=== PATIENT | male | born 1980 | race Two or more races ===

== ENCOUNTER 2017-04-25 23:37 | Emergency (ER) | payer SELFPAY ==
[2017-04-26] MEDS ORDERED: Ketorolac 60 MG/2 ML SDV IM ONE (00:48)
--- NOTE | 2017-04-26 00:54 | EDM.PDOC ---
ED HPI GENERAL MEDICAL PROBLEM - General Chief Complaint: Headache Stated Complaint: HEAD/RT EAR PAIN Time Seen by Provider: 04/26/17 00:35 - History of Present Illness INITIAL COMMENTS - FREE TEXT/NARRATIVE: HISTORY AND PHYSICAL: History of present illness: The patient is a 37-year-old male who presents with complaints of episodic persistent posterior headache that started about 8 days ago after he was coughing. Patient stated he had flulike symptoms and was coughing and after he had an episode of coughing he felt the pain on the back of his head. It waxes and wanes in intensity but keeps coming back and he was concerned and seeks evaluation. The patient has been taking [id number] Cherri aspirin as well as a Samoan pain meds which is a Tylenol derivative with caffeine. He says that he takes the medication and his headache improves but it comes back. He does not have a local provider. He has not had fever chills neck pain chest pain shortness of breath nausea or vomiting and has no neurosensory changes in his extremities and no back pain. The patient says that now the pain has moved to his right ear and he is concerned about it which is why he came in this evening. He's had no drainage from the ear. 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 Review of systems: As per history of present illness and below otherwise all systems reviewed and negative. Past medical history: As per history of present illness and as reviewed below otherwise noncontributory. Surgical history: As per history of present illness and as reviewed below otherwise noncontributory. Social history: No reported history of drug or alcohol abuse. Family history: As per history of present illness and as reviewed below otherwise noncontributory. Physical exam: Gen.: Well-developed well-nourished man who is nontoxic and vital signs of been reviewed by me. HEENT: Atraumatic, normocephalic, pupils reactive, negative for conjunctival pallor or scleral icterus, mucous membranes moist, throat clear, neck supple, nontender, trachea midline. There is no scalp defects or deformities and there is some tenderness at palpation of the occipital scalp area without any soft tissue swelling. There is no nuchal rigidity or cervical adenopathy. The TM on the left is slightly dulled and there is some cerumen in the canal and there is no mastoid tenderness or erythema and on the right side there is no mastoid tenderness or erythema but the TM has changes consistent with a Cholesteatoma. There is no redness or gross drainage appreciated Lungs: Clear to auscultation, breath sounds equal bilaterally, chest nontender. Heart: S1S2, regular rate and rhythm no overt murmurs Abdomen: Soft, nondistended, nontender. NABS Pelvis: Deferred Genitourinary: Deferred. Rectal: Deferred. Extremities: Atraumatic, negative for cords or calf pain. Neurovascular unremarkable. Neuro: Awake, alert, oriented. Cranial nerves II through XII unremarkable. Cerebellum unremarkable. Motor and sensory unremarkable throughout. Exam nonfocal. Diagnostics: CT scan of the head Therapeutics: Toradol All testing results and care plan for home have been discussed with the patient through the [facility] check examiner and he states that he understands he needs follow- up in the clinic as well as ENT follow-up and that I will be giving him some tramadol and Motrin to use for pain as needed if his own pain medications are not working. Impression: Persistent episodic headaches, Cholesteatoma changes of right tympanic membrane with otalgia Definitive disposition and diagnosis as appropriate pending reevaluation and review of above. Headache Pain Score (Numeric/FACES): 10 - Related Data Allergies Allergy/AdvReac Type Severity Reaction Status Date / Time No Known Allergies Allergy Verified 04/26/17 00:12 Home Meds: Home Meds . [No Known Home Meds] 03/07/15 [History] Past Medical History - Past Health History Medical/Surgical History: Denies Medical/Surgical History Social & Family History - Family History Family Medical History: Noncontributory - Tobacco Use Smoking Status *Q: Never Smoker Second Hand Smoke Exposure: No - Caffeine Use Caffeine Use: Reports: None - Recreational Drug Use Recreational Drug Use: No ED ROS GENERAL - Review of Systems Review Of Systems: ROS reveals no pertinent complaints other than HPI. ED EXAM, GENERAL - Physical Exam Exam: See Below (See dictation) Course - Vital Signs Last Recorded V/S: Last Vital Signs Temp 37.1 C 04/26/17 00:13 Pulse 69 04/26/17 00:13 Resp 16 04/26/17 00:13 BP 120/72 04/26/17 00:13 Pulse Ox 95 04/26/17 00:13 - Orders/Labs/Meds Orders: Active Orders 24 hr Category Date Time Status Head wo Cont [CT] Stat Exams 04/26/17 00:48 Taken Meds: Medications Discontinued Medications Generic Name Dose Route Start Last Admin Trade Name Daniel PRN Reason Stop Dose Admin Ketorolac Tromethamine 60 mg 04/26/17 00:48 04/26/17 01:10 Toradol IM 04/26/17 00:49 60 mg ONETIME ONE Administration Departure - Departure Time of Disposition: 01:46 Disposition: Home, Self-Care 01 Condition: Good Clinical Impression: Persistent headaches, Otalgia of right ear, Cholesteatoma - Discharge Information Referrals: PCP,None [Primary Care Provider] - Forms: ED Department Discharge Additional Instructions: The following information is given to patients seen in the emergency department who are being discharged to home. This information is to outline your options for follow-up care. We provide all patients seen in our emergency department with a follow-up referral. The need for follow-up, as well as the timing and circumstances, are variable depending upon the specifics of your emergency department visit. If you don't have a primary care physician on staff, we will provide you with a referral. We always advise you to contact your personal physician following an emergency department visit to inform them of the circumstance of the visit and for follow-up with them and/or the need for any referrals to a consulting specialist. The emergency department will also refer you to a specialist when appropriate. This referral assures that you have the opportunity for followup care with a specialist. All of these measure are taken in an effort to provide you with optimal care, which includes your followup. Under all circumstances we always encourage you to contact your private physician who remains a resource for coordinating your care. When calling for followup care, please make the office aware that this follow-up is from your recent emergency room visit. If for any reason you are refused follow-up, please contact the [facility] emergency department at and ask to speak to the emergency department charge nurse. [facility] Primary care- Internal Medicine and Family [address] [address] [facility] - ENT [address] [place] [address] Please contact one of our providers in the clinic to further evaluate these headaches and use medications as prescribed from [facility], tramadol and Motrin , if your own pain medications are not working. Return to ER as needed and as discussed. - My Orders Last 24 Hours: My Active Orders 04/26/17 00:48 Head wo Cont [CT] Stat - Assessment/Plan Last 24 Hours: My Active Orders 04/26/17 00:48 Head wo Cont [CT] Stat
[2017-04-26 02:02] VITALS: BP 100/67
--- NOTE | 2017-04-26 13:28 | CT ---
EXAM DATE: 04/25/17 PATIENT'S AGE: 37 Patient: KASSANDRA LOVE Facility: [place], [place] Site . Site : [id number] Study: CT Head [id number] 1:13:57 AM Ordering Physician: Maribell Darby Final Report: INDICATION: Posterior headache for 8 days TECHNIQUE: CT Head without i. v. contrast. COMPARISON: None FINDINGS: CSF spaces: Within normal limits for age. Brain parenchyma: The brain parenchyma is normal in appearance with preservation of the white-white matter junction. No sign of mass, hemorrhage, or midline shift. Skull base and calvarium: The visualized paranasal sinuses are well aerated. The mastoid air cells are clear. The visualized orbits are grossly unremarkable. No skull fractures are seen. IMPRESSION: 1. No CT evidence of acute infarct, hemorrhage, or mass effect seen. Dictated by: Tyler Julian MD @ 04/26/2017 01:22:14 (Electronic Signature) Report Signed by Proxy. KAMALA
== END 2017-04-26 01:58 | disposition home or self-care (01) ==
LOC: MW.ED 23:37
DX: H71.11 Cholesteatoma of tympanum, right ear (principal); R51 Headache
CPT/HCPCS: 70450; 96372; 99284; J1885

== ENCOUNTER 2020-11-25 14:42 | Emergency (ER) | payer SELFPAY ==
[2020-11-25] MEDS ORDERED: Sodium Chloride 0.9% 2.5 ML Syringe FLUSH PRN (15:04)
[2020-11-25] MEDS ORDERED: Sodium Chloride 0.9% 10 ML Syringe FLUSH PRN (15:04)
[2020-11-25] MEDS ORDERED: Sodium Chloride 0.9% 1,000 ML IV ONE (15:28)
--- NOTE | 2020-11-25 15:46 | EDM.PDOC ---
ED HPI GENERAL MEDICAL PROBLEM - General Chief Complaint: Abdominal Pain Stated Complaint: RIGHT SIDE PAIN Time Seen by Provider: 11/25/20 15:01 Source of Information: Reports: Patient History Limitations: Reports: No Limitations - History of Present Illness INITIAL COMMENTS - FREE TEXT/NARRATIVE: HISTORY AND PHYSICAL: History of present illness: Patient is a 40-year-old male who presents to the emergency room with complaints of right sided abdominal pain x2 months. Patient points to his lateral abdomen and right upper quadrant. Patient denies any fever, chills, headache, change in vision, syncope or near syncope. Denies any chest pain, back pain, shortness of breath or cough. Denies any nausea, vomiting, diarrhea, constipation or dysuria. Has not noted any blood in urine or stool. He denies any testicular pain, redness or swelling. No concern for STIs. Patient has been eating and drinking appropriately. [employer] translation services used - [place] speaking only Review of systems: As per history of present illness and below otherwise all systems reviewed and negative. Past medical history: As per history of present illness and as reviewed below otherwise n oncontributory. Surgical history: As per history of present illness and as reviewed below otherwise noncontributory. Social history: See social history for further information Family history: As per history of present illness and as reviewed below otherwise noncontributory. Physical exam: General: Well developed and well nourished 40 year old male. Alert and orientated x 3. Nontoxic in appearance and in no acute distress. Vital signs are stable and have been reviewed by me. Nursing notes were reviewed. HEENT: Atraumatic, normocephalic, pupils equal and reactive bilaterally, ne gative for conjunctival pallor or scleral icterus, mucous membranes moist, trachea midline. No drooling or trismus noted. No meningeal signs. No hot potato voice noted. Lungs: Clear to auscultation bilaterally. No wheezes, rales, or rhonchi. Chest nontender. Normal work of breathing, no accessory muscles used. Heart: S1S2, regular rate and rhythm without overt murmur, gallops, or rubs. No JVD. No peripheral edema Abdomen: Soft, nondistended, nontender. Normoactive bowel sounds. Negative for masses or costovertebral tenderness. Skin: Intact, warm, dry. No lesions or rashes noted. Hematologic: No petechiae or purpra. Mucosa appropriate color and normal nail bed color and refill. Extremities: Atraumatic, moves all extremities per self without difficulty or deficits, negative for cords or calf pain. Neurovascular unremarkable. Neuro: Awake, alert, oriented. Cranial nerves II through XII unremarkable. Cerebellum unremarkable. Motor and sensory unremarkable throughout. Exam nonfocal. Psychiatric: Mood and affect are appropriate. Normal thought process. Answering questions appropriately. Notes: *This patient was seen and evaluated during the 2019 SARS-CoV-2 novel coronavirus pandemic period. Community viral transmission is ongoing at time of this encounter and the emergency department is operating under pandemic response procedures. Patient is a 40-year-old male who presents to the emergency room with a 2-month history of right side pain. He states that the pain is intermittent and does not associate with food. He denies any nausea, vomiting or diarrhea. No skin rashes, lesions or recent travel. My physical exam is unremarkable. No concerning findings. Vital signs are stable. 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 CT shows nothing seen to explain the patient`s right-sided pain and hematuria. Normal appearance of the right urinary system with no sign of calculus or obstruction. Normal appearance of the appendix. CT of the abdomen shows fatty infiltration of the liver. CT of the pelvis shows minimal distal sigmoid diverticulosisI have talked with the patient about today's findings, in addition to providing specific details for plan of care. Reassessment at the time of disposition demonstrates that the patient is in no acute distress. The patient is stable for discharge, counseling was provided and we discussed in great detail signs and symptoms that would prompt them to return to the Emergency Department. Medication, follow up and supportive care measures were reviewed and discussed. Voices understanding and is agreeable to plan of care. Denies any further questions or concerns at this time. Diagnostics: CBC, CMP, Lipase, UA, CT abdomen/pelvis Therapeutics: IV fluids Prescription: None Impression: Abdominal Pain Plan: 1. You were evaluated today on an emergent basis. Your lab work is within normal limits. Your CT shows no concerning findings. Continue to monitor symptoms closely. If your symptoms should worsen, new symptoms develop or any of the signs and symptoms we discussed should arise please return to the emergency room or call 911 (if needed). 2. You can alternate Tylenol and ibuprofen as needed for pain and fever management. 3. We encourage you to follow up with your primary care provider and/or rec ommended specialist in the next few days for re-evaluation and further care/management. Translated [place] to Scottish: 1. Usted fue evaluado hoy de forma emergente. Estrada trabajo de laboratorio est de ntro de los lmites normales. Estrada TC no muestra hallazgos preocupantes. Contine monitoreando los sntomas de cerca. Si sunday sntomas empeoran, aparecen nuevos sntomas o si surge alguno de los signos y sntomas que discutimos, regrese a la zuleima de emergencias o llame al 911 (si es necesario). 2. Puede alternar Tylenol e ibuprofeno segn sea necesario para controlar el dolor y la fiebre. 3. Le recomendamos que terrie un seguimiento con estrada proveedor de atencin primaria y / o especialista recomendado en los prximos blum para clovis reevaluacin y atencin / manejo adicional. Definitive disposition and diagnosis as appropriate pending reevaluation and review of above. right upper abdomen Pain Score (Numeric/FACES): 8 - Related Data Allergies Allergy/AdvReac Type Severity Reaction Status Date / Time No Known Allergies Allergy Verified 11/25/20 15:26 Home Meds: Home Meds . [No Known Home Meds] 03/07/15 [History] Past Medical History - Past Health History Medical/Surgical History: Denies Medical/Surgical History HEENT History: Reports: None Cardiovascular History: Reports: None Respiratory History: Reports: None Gastrointestinal History: Reports: None Genitourinary History: Reports: None Musculoskeletal History: Reports: None Neurological History: Reports: None Psychiatric History: Reports: None Endocrine/Metabolic History: Reports: None Hematologic History: Reports: None Immunologic History: Reports: None Oncologic (Cancer) History: Reports: None Dermatologic History: Reports: None - Infectious Disease History Infectious Disease History: Reports: None - Past Surgical History Head Surgeries/Procedures: Reports: None Social & Family History - Family History Family Medical History: No Pertinent Family History - Tobacco Use Tobacco Use Status *Q: Never Tobacco User Second Hand Smoke Exposure: No - Caffeine Use Caffeine Use: Reports: None - Recreational Drug Use Recreational Drug Use: No ED ROS GENERAL - Review of Systems Review Of Systems: Comprehensive ROS is negative, except as noted in HPI. ED EXAM, GI/ABD - Physical Exam Exam: See Below (See dictation) Course - Vital Signs Last Recorded V/S: Last Vital Signs Temp 98.2 F 11/25/20 15:18 Pulse 62 11/25/20 18:12 Resp 16 11/25/20 18:12 BP 103/58 L 11/25/20 18:12 Pulse Ox 98 11/25/20 18:12 - Orders/Labs/Meds Orders: Active Orders 24 hr Category Date Time Status CULTURE URINE [MREF] Stat Lab 11/25/20 17:42 Ordered Saline Lock Insert [OM.PC] Stat Oth 11/25/20 15:04 Ordered Labs: Laboratory Tests 11/25/20 11/25/20 11/25/20 Range/Units 15:46 15:46 15:46 WBC 7.46 (4.0-11.0) K/uL RBC 5.31 (4.50-5.90) M/uL Hgb 16.5 (13.0-17.0) g/dL Hct 46.3 (38.0-50.0) % MCV 87.2 (80.0-98.0) fL MCH 31.1 (27.0-32.0) pg MCHC 35.6 (31.0-37.0) g/dL RDW Std Deviation 39.6 (28.0-62.0) fl RDW Coeff of Senia 12 (11.0-15.0) % Plt Count 194 (150-400) K/uL MPV 11.80 (7.40-12.00) fL Neut % (Auto) 49.9 (48.0-80.0) % Lymph % (Auto) 35.4 (16.0-40.0) % [place] % (Auto) 12.7 (0.0-15.0) % Eos % (Auto) 1.7 (0.0-7.0) % Baso % (Auto) 0.3 (0.0-1.5) % Neut # (Auto) 3.7 (1.4-5.7) K/uL Lymph # (Auto) 2.6 H (0.6-2.4) K/uL [place] # (Auto) 1.0 H (0.0-0.8) K/uL Eos # (Auto) 0.1 (0.0-0.7) K/uL Baso # (Auto) 0.0 (0.0-0.1) K/uL Nucleated RBC % 0.0 /100WBC Nucleated RBCs # 0 K/uL Sodium 141 (136-148) mmol/L Potassium 3.5 (3.5-5.1) mmol/L Chloride 105 (98-107) mmol/L Carbon Dioxide 28.9 (21.0-32.0) mmol/L BUN 14 (7.0-18.0) mg/dL Creatinine 0.8 (0.8-1.3) mg/dL Est Cr Clr Drug Dosing 101.90 mL/min Estimated GFR (MDRD) > 60.0 ml/min Glucose 105 (74-106) mg/dL Calcium 9.2 (8.5-10.1) mg/dL Total Bilirubin 0.6 (0.2-1.0) mg/dL AST 40 H (15-37) IU/L ALT 112 H (14-63) IU/L Alkaline Phosphatase 113 (46-116) U/L Total Protein 7.9 (6.4-8.2) g/dL Albumin 4.4 (3.4-5.0) g/dL Globulin 3.5 (2.6-4.0) g/dL Albumin/Globulin Ratio 1.3 (0.9-1.6) Lipase (73-393) U/L Urine Color YELLOW Urine Appearance CLEAR Urine pH 5.5 (5.0-8.0) Ur Specific [place] >= 1.030 (1.001-1.035) Urine Protein NEGATIVE (NEGATIVE) mg/dL Urine Glucose (UA) NEGATIVE (NEGATIVE) mg/dL Urine Ketones NEGATIVE (NEGATIVE) mg/dL Urine Occult Blood TRACE-INTACT H (NEGATIVE) Urine Nitrite NEGATIVE (NEGATIVE) Urine Bilirubin NEGATIVE (NEGATIVE) Urine Urobilinogen 0.2 (<2.0) EU/dL Ur Leukocyte Esterase NEGATIVE (NEGATIVE) Urine RBC 0-2 (0-2/HPF) Urine WBC 2-3 (0-5/HPF) Ur Epithelial Cells NOT SEEN (NONE-FEW) Amorphous Sediment RARE (NEGATIVE) Urine Bacteria RARE (NEGATIVE) Urine Mucus FEW (NONE-MOD) 11/25/20 Range/Units 15:46 WBC (4.0-11.0) K/uL RBC (4.50-5.90) M/uL Hgb (13.0-17.0) g/dL Hct (38.0-50.0) % MCV (80.0-98.0) fL MCH (27.0-32.0) pg MCHC (31.0-37.0) g/dL RDW Std Deviation (28.0-62.0) fl RDW Coeff of Senia (11.0-15.0) % Plt Count (150-400) K/uL MPV (7.40-12.00) fL Neut % (Auto) (48.0-80.0) % Lymph % (Auto) (16.0-40.0) % [place] % (Auto) (0.0-15.0) % Eos % (Auto) (0.0-7.0) % Baso % (Auto) (0.0-1.5) % Neut # (Auto) (1.4-5.7) K/uL Lymph # (Auto) (0.6-2.4) K/uL [place] # (Auto) (0.0-0.8) K/uL Eos # (Auto) (0.0-0.7) K/uL Baso # (Auto) (0.0-0.1) K/uL Nucleated RBC % /100WBC Nucleated RBCs # K/uL Sodium (136-148) mmol/L Potassium (3.5-5.1) mmol/L Chloride (98-107) mmol/L Carbon Dioxide (21.0-32.0) mmol/L BUN (7.0-18.0) mg/dL Creatinine (0.8-1.3) mg/dL Est Cr Clr Drug Dosing mL/min Estimated GFR (MDRD) ml/min Glucose (74-106) mg/dL Calcium (8.5-10.1) mg/dL Total Bilirubin (0.2-1.0) mg/dL AST (15-37) IU/L ALT (14-63) IU/L Alkaline Phosphatase (46-116) U/L Total Protein (6.4-8.2) g/dL Albumin (3.4-5.0) g/dL Globulin (2.6-4.0) g/dL Albumin/Globulin Ratio (0.9-1.6) Lipase 93 (73-393) U/L Urine Color Urine Appearance Urine pH (5.0-8.0) Ur Specific [place] (1.001-1.035) Urine Protein (NEGATIVE) mg/dL Urine Glucose (UA) (NEGATIVE) mg/dL Urine Ketones (NEGATIVE) mg/dL Urine Occult Blood (NEGATIVE) Urine Nitrite (NEGATIVE) Urine Bilirubin (NEGATIVE) Urine Urobilinogen (<2.0) EU/dL Ur Leukocyte Esterase (NEGATIVE) Urine RBC (0-2/HPF) Urine WBC (0-5/HPF) Ur Epithelial Cells (NONE-FEW) Amorphous Sediment (NEGATIVE) Urine Bacteria (NEGATIVE) Urine Mucus (NONE-MOD) Meds: Medications Discontinued Medications Generic Name Dose Route Start Last Admin Trade Name Freq PRN Reason Stop Dose Admin Sodium Chloride 1,000 mls @ 999 mls/hr 11/25/20 15:28 11/25/20 15:45 Normal Saline IV 11/25/20 16:28 999 mls/hr STAT ONE Administration Sodium Chloride 10 ml 11/25/20 15:04 11/25/20 15:46 Sodium Chloride 0.9% 10 Ml Syringe FLUSH 10 ml ASDIRECTED PRN Administration Keep Vein Open Sodium Chloride 2.5 ml 11/25/20 15:04 11/25/20 15:46 Sodium Chloride 0.9% 2.5 Ml Syringe FLUSH 2.5 ml ASDIRECTED PRN Administration Keep Vein Open Departure - Departure Time of Disposition: 17:44 Disposition: Home, Self-Care 01 Clinical Impression: Abdominal pain Qualifiers: Abdominal location: right lower quadrant Qualified Code(s): R10.31 - Right lower quadrant pain - Discharge Information Instructions: Abdominal Pain, Adult, [id number] Referrals: PCP,None [Primary Care Provider] - Forms: ED Department Discharge Additional Instructions: La siguiente informacin se proporciona a los pacientes atendidos en el departamento de emergencias que estn siendo dados de gerardo a estrada hogar. Esta informacin es para describir sunday opciones para la atencin de seguimiento. Proporcionamos a todos los pacientes atendidos en nuestro departamento de emergencias clovis derivacin de seguimiento. La necesidad de seguimiento, as georgi el momento y las circunstancias, varan segn los detalles de estrada visita al departamento de emergencias. Si no tiene un mdico de atencin primaria en el personal, le proporcionaremos clovis referencia. Siempre le recomendamos que se ponga en contacto con estrada mdico personal despus de clovis visita al servicio de urgencias para informarle de las circunstancias de la visita y para realizar un seguimiento con l y / o la necesidad de derivaciones a un especialista consultor. El departamento de emergencias tambin lo derivar a un especialista cuando sea apropiado. Esta remisin le asegura que tiene la oportunidad de recibir atencin de seguimiento con un especialista. Todas estas medidas se mago en un esfuerzo por brindarle clovis atencin ptima, que incluye estrada seguimiento. En todas las circunstancias, siempre lo alentamos a que se comunique con estrada mdico privado, quien sigue siendo un recurso para coordinar estrada atencin. Cuando llame para recibir atencin de seguimiento, informe al consultorio que oscar seguimiento es de estrada visita reciente a la zuleima de emergencias. Si por alguna razn se le niega el seguimiento, comunquese con el Departamento de Emergencias del [facility] y solicite hablar con la enfermera a cargo del departamento de emergencias. [facility] [address] [place] [address] [facility] [address] [place] [address] [place] por elegir el departamento de emergencias de [facility] en [place] para sunday necesidades mdicas hoy. Fue un placer cuidar de ti. Thank you for choosing the [facility] emergency department in [place] for your medical needs today. It was a pleasure caring for you. Today you were seen in the emergency department for right-sided abdominal pain 1. You were evaluated today on an emergent basis. Your lab work is within n ormal limits. Your CT shows no concerning findings. Continue to monitor symptoms closely. If your symptoms should worsen, new symptoms develop or any of the signs and symptoms we discussed should arise please return to the emergency room or call 911 (if needed). 2. You can alternate Tylenol and ibuprofen as needed for pain and fever management. 3. We encourage you to follow up with your primary care provider and/or recommended specialist in the next few days for re-evaluation and further care/management. Translated [place] to Scottish: 1. Usted fue evaluado hoy de forma emergente. Estrada trabajo de laboratorio est dentro de los lmites normales. Estrada TC no muestra hallazgos preocupantes. Contine monitoreando los sntomas de cerca. Si sunday sntomas empeoran, aparecen nuevos sntomas o si surge alguno de los signos y sntomas que discutimos, regrese a la zuleima de emergencias o llame al 911 (si es necesario). 2. Puede alternar Tylenol e ibuprofeno segn sea necesario para controlar el dolor y la fiebre. 3. Le recomendamos que terrie un seguimiento con estrada proveedor de atencin primaria y / o especialista recomendado en los prximos blum para clovis reevaluacin y atencin / manejo adicional. Sepsis Event Note (ED) - Evaluation Sepsis Screening Result: No Definite Risk - Focused Exam Vital Signs: Vital Signs Temp Pulse Resp BP Pulse Ox 11/25/20 18:12 62 16 103/58 L 98 11/25/20 15:18 98.2 F 74 18 128/71 98 - My Orders Last 24 Hours: My Active Orders 11/25/20 15:04 Saline Lock Insert [OM.PC] Stat 11/25/20 17:42 CULTURE URINE [MREF] Stat - Assessment/Plan Last 24 Hours: My Active Orders 11/25/20 15:04 Saline Lock Insert [OM.PC] Stat 11/25/20 17:42 CULTURE URINE [MREF] Stat
[2020-11-25 16:25] LABS: BLOOD UREA NITROGEN,BUN 14 mg/dL (7.0-18.0); CARBON DIOXIDE,CO2 28.9 mmol/L (21.0-32.0); CHLORIDE,CL 105 mmol/L (98-107); GLUCOSE RANDOM 105 mg/dL (74-106); POTASSIUM,K 3.5 mmol/L (3.5-5.1); SODIUM,NA 141 mmol/L (136-148)
--- NOTE | 2020-11-25 17:34 | CT ---
INDICATION: Right-sided abdominal pain. Hematuria. COMPARISON: Report of the ultrasound of the right upper quadrant from 01/02/2015 TECHNIQUE: CT examination of the abdomen and pelvis was performed without contrast enhancement using 2.5 mm thick axial sections from the lung bases through the pubic symphysis. Oral contrast was not administered. Please note that all CT scans at this facility use dose modulation, iterative reconstruction, and/or weight-based dosing when appropriate to reduce radiation dose to as low as reasonably achievable. FINDINGS: In the abdomen, the liver is low in density, representing fatty infiltration, consistent with the previous ultrasound report. There is no sign of mass. The spleen, pancreas and adrenals are normal in appearance. The unenhanced kidneys are normal in appearance. The gallbladder is normal in appearance. The abdominal aorta is normal in caliber with no sign of dilatation. There is no sign of retroperitoneal mass or adenopathy. The stomach, loops of small bowel, and colon in the abdomen are normal in appearance. In the pelvis, the appendix is normal in appearance with no sign of inflammatory process. There is minimal distal sigmoid diverticulosis without evidence of diverticulitis. The loops of small bowel and colon in the pelvis are otherwise normal in appearance. The prostate is normal in appearance. The urinary bladder is normal in appearance. There is no sign of pelvic or inguinal mass or adenopathy. There is no sign of free air or free fluid in the abdomen or pelvis. There is a tiny calcified granuloma in the posterior-lateral right lower lobe. The lung bases are otherwise clear. There is a sacralized L5 segment with a hypoplastic L5-S1 disc space with partial fusion in anatomic alignment. There is minimal posterior subluxation of L4 on L5 which is probably a congenital variant. The L4-5 disc space is normal in height. The osseous structures are otherwise normal in appearance for the patient`s age. IMPRESSION: Nothing seen to explain the patient`s right-sided pain and hematuria. Normal appearance of the right urinary system with no sign of calculus or obstruction. Normal appearance of the appendix. CT of the abdomen shows fatty infiltration of the liver. CT of the pelvis shows minimal distal sigmoid diverticulosis. Please note that all CT scans at this facility use dose modulation, iterative reconstruction, and/or weight-based dosing when appropriate to reduce radiation dose to as low as reasonably achievable. Dictated by Maykel Barry MD @ 11/25/2020 5:33:[address] Maykel Barry @ Nov 25 2020 5:33PM
[2020-11-25 18:13] VITALS: BP 103/58; PULSE 62
== END 2020-11-25 18:13 | disposition home or self-care (01) ==
LOC: MW.ED 14:42
DX: R10.31 Right lower quadrant pain (principal); R10.11 Right upper quadrant pain
CPT/HCPCS: 36415; 74176; 80053; 81001; 83690; 85025; 87086; 99284; J7030